=== PATIENT | male | born 1965 | race African-American/Black ===

== ENCOUNTER 2021-06-27 23:53 | Emergency (ER) | payer BC, OTHER, SELFPAY ==
[2021-06-28 00:50] LABS: Hemoglobin 10.8 g/dL (14.0-18.0)
[2021-06-28 02:31] LABS: Hemoglobin 10.7 g/dL (14.0-18.0)
== END 2021-06-28 02:40 | disposition home or self-care (01) ==
LOC: MADERS 23:53
DX: I83.891 Varicose veins of right lower extremity with other complications (principal); D64.9 Anemia, unspecified; E78.5 Hyperlipidemia, unspecified; E78.00 Pure hypercholesterolemia, unspecified
CPT/HCPCS: 85014; 85018; 99284